=== PATIENT | male | born 1960 | race Caucasian/White ===

== ENCOUNTER 2018-11-30 03:54 | Inpatient (IN) | payer OTHER ==
[2018-11-30] VITALS (7 sets, daily range): BP systolic 111–139; BP diastolic 67–81
[~2018-11-30] VITALS: Ht 175.3 cm; Wt 72.6 kg
[~2018-11-30 03:54] MED LIST: ASPIR 8181 M1 PO; CRESTOR10 MG PO; IBUPROFEN 600600 M1 PO; IMDUR 30 MG TAB30 M1 PO; LISINOPRIL5 MG PO; NICOTINE TRANSD21 M1 TRANSDERM; POLYMYXIN B/TMP10 ML OPHTHALMIC; TOPROL XL50 MG PO; TYLENOL325 MG PO
--- NOTE | 2018-11-30 04:05 | NUR ---
PT HAS WHITE RESIDUE ON OUTSIDE OF RIGHT NOSTRIL
[2018-11-30 04:16] LABS: ABSOLUTE NEUTROPHILS 13.3 thou/uL (1.4-8.2); BASOPHILS 0.6 % (0.0-2.0); HEMATOCRIT 44.2 % (42.0-52.0); HEMOGLOBIN 14.8 gm/dL (14.0-18.0); MCH 30.3 pg (26.0-34.0); MCHC 33.5 g/dL (28.0-37.0); MCV 90.4 fL (80.0-100.0); MONOCYTES 4.5 % (1.0-8.0); PLATELET COUNT 249 thou/uL (150-400); POLYS 89.9 % (36.0-66.0); RBC 4.89 mil/uL (4.50-6.00); RDW 13.1 % (10.5-14.5); WBC 14.8 thou/uL (4.0-11.0)
[2018-11-30 04:26] LABS: ANION GAP 13 mmol/L (7-16); BUN 22 mg/dL (7-18); CHLORIDE 101 mmol/L (98-107); CO2 26 mmol/L (21-32); CREATININE 1.2 mg/dL (0.7-1.3); GLUCOSE 93 mg/dL (74-106); SODIUM 140 mmol/L (136-145)
[2018-11-30 04:36] LABS: ALBUMIN 4.4 g/dL (3.4-5.0); MAGNESIUM 1.7 mg/dL (1.8-2.4); SALICYLATE < 2.8 mg/dL (2.8-20.0); SGOT 28 U/L (15-37); SGPT 16 U/L (30-65); TOTAL BILIRUBIN 0.8 mg/dL (<0.1-1.0); TOTAL PROTEIN 7.7 g/dL (6.4-8.2); TROPONIN-I <0.06 ng/mL (<0.06)
[2018-11-30 06:37] LABS: URINE BILIRUBIN NEGATIVE (Negative); URINE BLOOD 1+ (Negative); URINE CLARITY CLEAR; URINE COLOR YELLOW; URINE GLUCOSE-RANDOM* NEGATIVE (Negative); URINE KETONES 2+ (Negative); URINE LEUKOCYTES-REFLEX NEGATIVE (Negative); URINE NITRITE-REFLEX NEGATIVE (Negative); URINE PROTEIN (DIPSTICK) NEGATIVE (Negative); URINE SPECIFIC GRAVITY >= 1.030 (1.005-1.035); URINE UROBILINOGEN 0.2 E.U./dl (0.2-1.0)
[2018-11-30 06:47] LABS: AMP/METHAMP POSITIVE (Negative); BARBITURATES Negative (Negative); BENZODIAZEPINES Negative (Negative); COCAINE Negative (Negative); METHADONE Negative (Negative); OPIATES Negative (Negative); PCP Negative (Negative)
[2018-11-30 07:10] LABS: MUCUS >6 Heavy strn/LPF (None Seen); SQUAMOUS 0-3 Few /LPF (0-3)
[2018-11-30 07:11] LABS: BACTERIA-REFLEX None Seen /HPF (None Seen); CASTS None Seen /LPF (None Seen); CRYSTALS None Seen /LPF (None Seen); URINE RBC 0-2 Rare /HPF (0-2); URINE WBC-REFLEX 0-5 Rare /HPF (0-5)
--- NOTE | 2018-11-30 08:11 | EKG ---
[address] [address] ELECTROCARDIOGRAM REPORT Name: SIMON NEWMAN Room #: 205-P ADM IN M.R.#: [id number] ������������������ Admission: 11/30/18 ������������������ Attend Phys: Isiah Rodriguez MD Discharge: ������������������ Date of : 64 Report #: [id number] ����������������������������������������������������������������� [id number] THIS REPORT FOR: //name// [facility] ED Test Date: 2018-11-30 Test Time: 04:09:23 Pat Name: SIMON NEWMAN Department: Room: [facility] Gender: M Buildings Painter: zhane : 1960 Requested By: Huber Urbano Order Number: [id number] MD: Chay Bautista Measurements Intervals [place] Rate: 109 P: 59 AL: 106 QRS: 90 QRSD: 99 T: 3 QT: 351 QTc: 473 Interpretive Statements Sinus tachycardia Borderline right axis deviation Compared to ECG 02/05/2016 10:20:45 Heart rate has increased Electronically Signed On 11-30-2018 8:10:59 [employer] by Chay Bautista [email or web address] ��������������������������������������������� <ELECTRONICALLY SIGNED> ���������������������������������������� By: Chay Bautista MD, [facility] ��������������������������������������������� 11/30/18 0810 [id number] Chay Bautista MD, FAC /EPI
[2018-11-30 08:24] LABS: MAGNESIUM 1.8 mg/dL (1.8-2.4); PHOSPHORUS 3.8 mg/dL (2.5-4.9)
--- NOTE | 2018-11-30 09:37 | NUR ---
pt status - pt arrived on unit 2n, stating he does not want tx. pt aox4 and states he cannot afford all of these test. Dr Rodriguez notified and at bedside, arreed to pts request and will have him sign AMA documentation. Will monitor.
--- NOTE | 2018-11-30 14:14 | 2DMMODE ---
[facility] [address] [employer] [employer] [place] [address] 2 D/M-MODE ECHOCARDIOGRAM Name: TRENTSIMON GOOD Room #: 205-P ADM IN M.R.#: [id number] ������������� Admission: 11/30/18 ������������� Attend Phys: Isiah Rodriguez, Discharge: ��� ������������� ��� Date of : 64 Date of Service: 11/30/18 1413 �� Report #: [id number] �������� ��������������������������������������������[id number] THIS REPORT FOR: //name// APPROVED REPORT Study performed: 11/30/2018 13:01:03 EXAM: Comprehensive 2D, Doppler, and color-flow Echocardiogram Patient Location: Bedside Room #: 205 Status: routine BSA: 1.88 HR: 89 bpm BP: 131/78 mmHg Rhythm: NSR Other Information Study Quality: Good Risk Factors: Cardiac Risk Factors: Smoking Indications CAD Tachycardia Chest Pain 2D Dimensions IVSd: 7.55 (7-11mm) LVOT Diam: 20.00 (18-24mm) LVDd: 40.70 mm PWd: 10.16 (7-11mm) Ascending Ao: 28.62 (22-36mm) LVDs: 28.79 (25-40mm) Aortic Root: 32.39 mm LV Single Plane 4CH: 60.73 % LV Single Plane 2CH: 66.19 % Biplane EF: 62.3 % Volumes Left Atrial Volume (Systole) Single Plane 4CH: 46.14 mL Single Plane 2CH: 38.36 mL LA ESV Index: 25.00 mL/m2 Aortic Valve AoV Peak Bruno.: 1.37 m/s AO Peak Gr.: 7.52 mmHg LVOT Max P.62 mmHg [facility] [address] [place] [address] 2 D/M-MODE ECHOCARDIOGRAM Name: SIMON NEWMAN Room #: 205-P [facility] IN [facility]#: [id number] ������������� Admission: 11/30/18 ������������� Attend Phys: Isiah Rodriguez, Discharge: ��� ������������� ��� Date of : 64 Date of Service: 11/30/18 1413 �� Report #: [id number] �������� ��������������������������������������������[id number] LVOT Max V: 1.07 m/s ASPEN Vmax: 2.38 cm2 Mitral Valve E/A Ratio: 0.8 MV Decel. Time: 187.34 ms MV E Max Bruno.: 0.82 m/s MV A Bruno.: 1.04 m/s MV PHT: 54.33 ms IVRT: 62.28 ms TDI E/Lateral E': 8.20 E/Medial E': 9.11 Medial E' Bruno.: 0.09 m/s Lateral E' Bruno.: 0.10 m/s Pulmonary Valve PV Peak Bruno.: 1.25 m/s PV Peak Gr.: 6.23 mmHg Pulmonary Vein P Vein S: 0.94 m/s P Vein A: 0.32 m/s P Vein D: 0.67 m/s P Vein A Dur.: 107.3 msec P Vein S/D Ratio: 1.40 Tricuspid Valve TR Peak Bruno.: 3.20 m/s RAP Estimate: 7.00 mmHg TR Peak Gr.: 40.94 mmHg PA Pressure: 48.00 mmHg Left Ventricle The left ventricle is normal size. There is normal left ventricular wall thickness. Left ventricular systolic function is normal. The left ventricular ejection fraction is within the normal range. LVEF is 60-65%. Grade I - abnormal relaxation pattern. Right Ventricle The right ventricle is normal size. The right ventricular systolic function is normal. Atria The left atrium size is normal. The right atrium size is normal. Aortic Valve The Aortic valve is sclerotic. No aortic regurgitation is present. There is no aortic valvular stenosis. [facility] [address] [place] [address] 2 D/M-MODE ECHOCARDIOGRAM Name: SIMON NEWMAN Room #: 205-P [facility] IN ..#: [id number] ������������� Admission: 11/30/18 ������������� Attend Phys: Isiah Rodriguez, Discharge: ��� ������������� ��� Date of : 64 Date of Service: 11/30/18 1413 �� Report #: [id number] �������� ��������������������������������������������[id number] Mitral Valve The mitral valve is normal in structure. Trace mitral regurgitation. No evidence of mitral valve stenosis. Tricuspid Valve The tricuspid valve is normal in structure. Trace tricuspid regurgitation. Pulmonary artery pressure is 48 mmHg. Pulmonic Valve The pulmonary valve is normal in structure. There is no pulmonic valvular regurgitation. Great Vessels The aortic root is normal in size. IVC is normal in size and collapses >50% with inspiration. Pericardium There is no pericardial effusion. <Conclusion> The left ventricle is normal size. LVEF is 60-65%. The Aortic valve is sclerotic. No aortic regurgitation is present. There is no aortic valvular stenosis. The mitral valve is normal in structure. Trace mitral regurgitation. The tricuspid valve is normal in structure. Trace tricuspid regurgitation. Pulmonary artery pressure is 48 mmHg. The pulmonary valve is normal in structure. There is no pericardial effusion. ��������������������������������������������� <ELECTRONICALLY SIGNED> ���������������������������������������� By: Michael Verdugo MD ��������������������������������������������� 11/30/18 1413 1413 1413 Michael Verdugo MD /INF
--- NOTE | 2018-12-01 04:00 | NUR ---
Pt having an uneventful night.
[2018-12-01 04:13] VITALS: BP 144/73
[2018-12-01 07:34] VITALS: BP 129/83
[2018-12-01 09:05] LABS: HEMOGLOBIN 13.8 gm/dL (14.0-18.0); MCH 29.8 pg (26.0-34.0); MCHC 32.8 g/dL (28.0-37.0); RBC 4.61 mil/uL (4.50-6.00); WBC 8.1 thou/uL (4.0-11.0)
[2018-12-01 09:12] LABS: CALCIUM 8.4 mg/dL (8.5-10.1); CREATININE 0.9 mg/dL (0.7-1.3); MAGNESIUM 1.7 mg/dL (1.8-2.4); POTASSIUM 3.9 mmol/L (3.5-5.1)
[2018-12-01 09:16] LABS: CHOLESTEROL 150 mg/dL (<200); HDL CHOLESTEROL 51 mg/dL (>40); LDL CHOLESTEROL 87 mg/dL (<100); TC:HDL 2.9 Ratio (Not establshd); TRIGLYCERIDE 62 mg/dL (<150); VLDL 12 mg/dL (<40)
[2018-12-01 11:31] VITALS: BP 129/83
[2018-12-01 11:59] VITALS: BP 129/83
--- NOTE | 2018-12-03 13:50 | HC ---
[facility] [place] [address] CONSULTATION Name: SIMON NEWMAN Room #: 205-P DIS IN M.R.#: [id number] Admission: 11/30/18 ������������������ Attend Phys: Isiah Rodriguez MD Discharge: 12/01/18 ������������������ Date of : 64 Report #: [id number] THIS REPORT FOR: //name// CC: YENI physician/PCP Isiah Rodriguez DATE OF SERVICE: 11/30/2018 HISTORY OF PRESENT ILLNESS: This is a 58-year-old male patient who was discussed with the admitting physician as well as the Emergency Room physician. I tried to see this patient, but this patient is almost constantly talking. What he says make sense, but he almost looked like a maniac face. I cannot verify the history, but it looks like there was some problem at home. I cannot verify that what happened at home is correct or not. He would not give that history. He said he ran out of gas, he still remembered that. He says he wants to go home because he is not under arrest and he can go home any time. He says he has no insurance, so he does not want the MRI. According to the Emergency Room physician, he was unstable on his feet. His drug screen was positive for methamphetamine and it was also positive for marijuana. REVIEW OF SYSTEMS: Indicate he says he used to work here. He said he has severe coronary artery disease. He was given very short period to live. This is as per history. He said he does not drink any alcohol, but I am not sure whether that history is completely correct. 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 I tried to do the 14-point review of systems and that is the best I could carry out. PAST MEDICAL HISTORY: Positive for some disease, which he would not tell me, which he was given very small time to live according to him. FAMILY HISTORY: Negative for any epilepsy. SOCIAL HISTORY: He smokes. He said he drinks alcohol very rarely. He says he does not use amphetamines, but it is positive in his system. PHYSICAL EXAMINATION: I made multiple attempts to examine him. He would not let me examine. He keeps saying things and he appeared to be competent, he appeared to be somewhat in maniac face. He moves all 4 extremities. He does not appear to have any meningeal sign. He did not allow any further examination. His white count is 14.25, which is somewhat elevated. He did have a CT scan of the head and carotid Doppler, which was unremarkable. His MRI and MRA was scheduled and I had recommended that he get an MRI of the brain and MRA of the head and neck stat when he was in the Emergency Room. As I understood from the patient, he will not do it. He said he does not have insurance [place] [address] CONSULTATION Name: SIMON NEWMAN Room #: 205-P DIS IN M.R.#: [id number] Admission: 11/30/18 ������������������ Attend Phys: Isiah Rodriguez MD Discharge: 12/01/18 ������������������ Date of : 64 Report #: [id number] want to do it. I told him the importance of it but he is still did not do it. As an alternative, I send the collision technician to see if we can get an EEG done. He refused that also. I talked to the hospitalist and I discussed with him that there is not much I can do if he does not let me do any testing. We will see Psychiatry evaluation, which is recommended and which is pending and see what they say. RECOMMENDATIONS: I am not sure what else can be done. Firstly, I told him what we need to do. He understood, but then would not allow me to do that. We will check again tomorrow to see if he wants to let us to do any further testing, but from all indication, today he would not let us do that. ��������������������������������������������� <ELECTRONICALLY SIGNED> ���������������������������������������� By: Bhanu Richmond MD ��������������������������������������������� 12/03/18 1350 1803 0222 Bhanu Richmond MD /purvi
== END 2018-12-01 12:00 | disposition home or self-care (01) | DRG 917 ==
LOC: ER 03:54 → EROBS 07:29 → 2N 08:08
PROVIDERS: Emergency Medicine; ADMIT Internal Medicine
DX: T43.621A Poisoning by amphetamines, accidental (unintentional), initial encounter (principal); G92 Toxic encephalopathy; N17.9 Acute kidney failure, unspecified; M62.82 Rhabdomyolysis; F22 Delusional disorders; E86.0 Dehydration; R00.0 Tachycardia, unspecified; R41.0 Disorientation, unspecified; F17.210 Nicotine dependence, cigarettes, uncomplicated; F41.9 Anxiety disorder, unspecified; F12.90 Cannabis use, unspecified, uncomplicated; F19.10 Other psychoactive substance abuse, uncomplicated; I25.10 Atherosclerotic heart disease of native coronary artery without angina pectoris; Z79.82 Long term (current) use of aspirin; I25.2 Old myocardial infarction; Z95.5 Presence of coronary angioplasty implant and graft; Z88.0 Allergy status to penicillin; Z79.899 Other long term (current) drug therapy; Y92.89 Other specified places as the place of occurrence of the external cause
CPT/HCPCS: 10081